=== PATIENT | female | born 1985 | race Caucasian/White ===

== ENCOUNTER 2016-04-25 15:21 | Emergency (ER) | payer MEDICARE, OTHER ==
[2016-04-25] MEDS ORDERED: KETOROLAC TROMETHAMINE 30 MG/ML VIAL IM ONE (15:46)
[2016-04-25] MEDS ORDERED: ACETAMINOPHEN 500 MG TABLET PO ONE (15:46)
--- OUTSIDE RECORDS SUMMARY | 2016-04-25 15:46 | XMS REPORT | Continuity of Care Document ---
:1985 Author Organization [facility] ([facility]) Address [address] [place] [address] Phone [phone] Care Team Providers Name Role Phone Dash Godinez Primary Care Provider [phone] Source Comments This disclosure is being made pursuant to the Care Everywhere program, applicable federal and state laws, and may not contain all informaitonavailable regarding this patient.[facility] ([facility]) Active Allergies and Adverse Reactions Allergen Noted Date Severity Reactions Comments Cefazolin 11/26/2011 Blisters,Angioedema Tongue swelling, blisters in mouth Penicillins 10/26/2011 Urticaria (Hives) Tongue swelling; Blisters in mouth Current Medications Prescription Sig. Disp. Refills Start Date End Date Status phentermine 37.5 mg Take 37.5 mg by Active tablet mouth every morning after breakfast. take one-half tablet (18.75 mg) by oral route once daily before breakfast furosemide 40 mg tablet take 1 tablet (40 Active mg) by oral route 2 times per day ALPRAZolam 0.5 mg tablet take 1 tablet (0.5 Active mg) by oral route 3 times per day Active Problems Problem Noted Date Endometrial hyperplasia 03/25/2015 Dental caries 03/08/2015 Muscle spasm of back 11/08/2011 Disc herniation 11/08/2011 Radiculopathy of lumbar region 11/06/2011 Back pain 10/26/2011 Most Recent Encounters Date Type Specialty Providers Description 04/23/2016 Office Visit Kaushik Conde DDS Chief Comp: Patient Reported Reason For Visit 04/05/2016 Office Visit Kaushik Conde DDS Chief Comp: Patient Reported Reason For Visit 03/21/2016 Office Visit Kaushik Conde DDS Chief Comp: Patient Reported Reason For Visit 03/15/2016 Office Visit Kaushik Conde DDS Chief Comp: Patient Reported Reason For Visit 03/01/2016 Office Visit Kaushik Conde DDS Chief Comp: Patient Reported Reason For Visit Social History Tobacco Use Types Packs/Day Years Used Date Never Smoker Smokeless Tobacco: Never Used Tobacco Cessation:Counseling Given: Yes Comments: Alcohol Use Drinks/Week oz/Week Comments No once a month Last Filed Vital Signs Vital Sign Reading Time Taken Blood Pressure 118/62 04/04/2015 10:50 AM [employer] Pulse 53 03/24/2015 11:25 AM [employer] Temperature 36.9 C (98.4 F) 03/24/2015 11:25 AM [employer] Respiratory Rate 16 03/24/2015 11:25 AM [employer] Height 1.702 m (5' 7") 04/04/2015 10:04 AM [employer] Weight 169.9 kg (374 lb 9 oz) 04/04/2015 10:04 AM [employer] Body Mass Index 58.65 04/04/2015 10:04 AM [employer] Oxygen Saturation 99% 04/04/2015 10:50 AM [employer] Plan of Care Date Type Specialty Providers Description 05/28/2016 Appointment Dentistry Fiona Sears Chief Comp: Patient [address] [place] [address] [phone] (Fax) Health Maintenance Due Date Last Done Comments Hepatitis B Vaccine (1 of 3 - Primary Series) 1985 Tdap Vaccine 07/09/1994 Lipid Disorder Screening 07/09/2001 MMR Vaccine 07/09/2001 Td Vaccine 07/09/2001 Varicella Vaccine (1 of 2 - Adult - No Evidence of 07/09/2001 Immunity) Cervical Cancer Screening 07/09/2013 Influenza Vaccine: Seasonal (#1) 10/03/2015 Results from Last 3 Months Not on file
[2016-04-25] MEDS ORDERED: KETOROLAC TROMETHAMINE 30 MG/ML VIAL ONE (16:05)
[2016-04-25 16:39] VITALS: BP 126/81
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
== END 2016-04-25 17:10 | disposition home or self-care (01) ==
LOC: ER 15:21
DX: S09.90XA Unspecified injury of head, initial encounter (principal); M25.512 Pain in left shoulder; V86.99XA Unspecified occupant of other special all-terrain or other off-road motor vehicle injured in nontraffic accident, initial encounter; F41.8 Other specified anxiety disorders

== ENCOUNTER 2016-05-23 21:03 | Emergency (ER) | payer MEDICARE, OTHER ==
[2016-05-23 21:19] VITALS: BP 151/90
--- OUTSIDE RECORDS SUMMARY | 2016-05-23 21:49 | XMS REPORT | Continuity of Care Document ---
:1985 Author Organization [facility] ([facility]) Address [address] [place] [address] Phone [phone] Care Team Providers Name Role Phone Dash Godinez Primary Care Provider [phone] Source Comments This disclosure is being made pursuant to the Care Everywhere program, applicable federal and state laws, and may not contain all informaitonavailable regarding this patient.[facility] ([facility]) Active Allergies and Adverse Reactions Allergen [...] Recent Encounters Date Type Specialty Providers Description 05/07/2016 Office Visit Kaushik Conde DDS Chief Comp: Patient Reported Reason For Visit 04/23/2016 Office Visit Kaushik Conde DDS Chief [...] Taken Blood Pressure 118/62 04/04/2015 10:50 AM [employer] Pulse 53 03/24/2015 11:25 AM [employer] Temperature 36.9 C (98.4 F) 03/24/2015 11:25 AM [employer] Respiratory Rate 16 03/24/2015 11:25 AM [employer] Height 1.702 m (5' 7") 04/04/2015 10:04 AM [employer] Weight 169.9 kg (374 lb 9 oz) 04/04/2015 10:04 AM [employer] Body Mass Index 58.65 04/04/2015 10:04 AM [employer] Oxygen Saturation 99% 04/04/2015 10:50 AM [employer] Plan of Care Date Type Specialty Providers Description 05/28/2016 Appointment Dentistry Fiona Sears Chief Comp: Patient [address] [place] [address] [phone] (Fax) Health Maintenance Due Date Last Done [...]
[2016-05-23] MEDS ORDERED: TRIAMCINOLONE ACETONIDE 15 APPL TUBE TP ONE ×2 (21:54→21:57)
--- NOTE | 2016-05-23 21:59 | ERNOTE ---
Integumentary HPI - General Presenting Symptoms: rash Time Seen by Provider: 05/23/16 21:43 Source: patient - Immun/Allergies/Home Medications Immunizations: IMMUNIZATION HX Immunizations Up to Date Yes History of Influenza Vaccine Yes Hx Pneumococcal Vaccination No Allergies/Adverse Reactions: Allergies Allergy/AdvReac Type Severity Reaction Status Date / Time Cephalosporins Allergy Verified 05/23/16 21:19 Penicillins Allergy Verified 05/23/16 21:19 Home Medications: HOME MEDICATIONS Alprazolam [Xanax Xr] 0.5 mg PO TID 01/25/15 [Last Taken Unknown] Furosemide [Lasix] 40 mg PO BID 01/25/15 [Last Taken Unknown] - Pain Pain Score: 5 - History of Present Illness Narrative: Pt c/o left post thigh tenderness and itching. Onset earlier today Location: Reports: lower extremity Quality: Reports: itching, painful Severity: moderate Exposure: Reports: no cause identified Modifying Factors - (Improves): Reports: scratching Review of Systems - Review of Systems Constitutional: Present: no symptoms reported EYE: Present: no symptoms reported ENT: Present: no symptoms reported - Patient's Past Medical History Patient History - Medical: Anxiety, Depression, Obesity Patient History - Cardiac/Respiratory: No pertinent hx Patient History - Cancer: No Hx of Cancer Patient History - Surgical Procedures: Back Surgery, Cholecystectomy, Other Patient History - Other: None LMP (Calendar): 02/01/15 - Family History mom Family History - Medical: , Migraines Family History - Cardiac/Respiratory: No pertinent hx dad Family History - Medical: Glaucoma Family History - Cardiac/Respiratory: Other - Social History Living Situations: home Abuse History: No History of abuse Psych History: Hx of Anxiety, Hx of Depression Smoking Status: Never smoker Have you smoked in the past 12 months: No Do you dip or chew tobacco: No Alcohol Use: none Drug Use: benzodiazepine - Immunizations Immunizations Up to Date: Yes Hx Pneumococcal Vaccination: No History of Influenza Vaccine: Yes Physical Exam - Physical Exam General Appearance: Present: wd/wn, alert, no apparent distress Neck: Present: normal inspection, supple Respiratory: Present: no respiratory distress, no accessory muscle use Extremity Exam: Present: normal range of motion Neurological Exam: Present: alert, oriented, normal mood/affect Skin Exam: Present: other - papules and plaques in an irregular pattern in a 5- 6 cm area on the posterior left thigh approx 1/2 way up from knee ED Progress - Vital Signs Vital Signs: Vital Signs 05/23/16 21:15 Temperature 36.8 C Pulse Rate 98 Respiratory 20 Rate Blood Pressure 151/90 O2 Sat by Pulse 96 Oximetry - Progress/Reassessment Chief Complaint: Abscess Progress Note-Subjective: Triamcinolone 0.1% cream applied to area and remainder of the tube sent home with patient 05/24/16 05:31 Departure Clinical Impression: Insect bite Qualifiers: Encounter type: initial encounter Qualified Code(s): W57.XXXA - Bitten or stung by nonvenomous insect and other nonvenomous arthropods, initial encounter - Departure Disposition: Home self-care Condition: Good Instructions: Insect Bite Additional Instructions: See your regular doctor if not improving. Referrals: Dash Godinez DO [Primary Care Provider] -
== END 2016-05-23 22:03 | disposition home or self-care (01) ==
LOC: ER 21:03
DX: L29.9 Pruritus, unspecified (principal); W57.XXXA Bitten or stung by nonvenomous insect and other nonvenomous arthropods, initial encounter; F41.8 Other specified anxiety disorders

== ENCOUNTER 2016-05-27 20:31 | Emergency (ER) | payer MEDICARE, OTHER ==
[2016-05-27 20:53] VITALS: BP 143/87
--- OUTSIDE RECORDS SUMMARY | 2016-05-27 21:42 | XMS REPORT | Continuity of Care Document ---
:1985 Author Organization [facility] ([facility]) Address [address] [place] [address] Phone [phone] Care Team Providers Name Role Phone Dash Godinez Primary Care Provider [phone] Source Comments This disclosure is being made pursuant to the Care Everywhere program, applicable federal and state laws, and may not contain all informaitonavailable regarding this patient.[facility] ([facility]) Active Allergies and Adverse Reactions Allergen [...] Taken Blood Pressure 118/62 04/04/2015 10:50 AM [employer] Pulse 53 03/24/2015 11:25 AM [employer] Temperature 36.9 C (98.4 F) 03/24/2015 11:25 AM [employer] Respiratory Rate 16 03/24/2015 11:25 AM [employer] Height 1.702 m (5' 7") 04/04/2015 10:04 AM [employer] Weight 169.9 kg (374 lb 9 oz) 04/04/2015 10:04 AM [employer] Body Mass Index 58.65 04/04/2015 10:04 AM [employer] Oxygen Saturation 99% 04/04/2015 10:50 AM [employer] Plan of Care Date Type Specialty Providers Description 05/28/2016 Appointment Dentistry Fiona Sears Chief Comp: Patient [address] Rep[place] [address] [phone] (Fax) Health Maintenance Due Date Last Done [...]
--- NOTE | 2016-05-27 21:45 | ERNOTE ---
Lower Extremity HPI - Narrative Date of Service: 05/27/16 - General Lower Extremities Pain: thigh: left - abscess Source: patient Exam Limitations: no limitations - Immun/Allergies/Home Medications Immunizations: IMMUNIZATION HX Immunizations Up to Date Yes History of Influenza Vaccine Yes Hx Pneumococcal Vaccination No Allergies/Adverse Reactions: Allergies Allergy/AdvReac Type Severity Reaction Status Date / Time Cephalosporins Allergy Verified 05/23/16 21:19 Penicillins Allergy Verified 05/23/16 21:19 Home Medications: HOME MEDICATIONS Alprazolam [Xanax Xr] 0.5 mg PO TID 01/25/15 [Last Taken Unknown] Furosemide [Lasix] 40 mg PO BID 01/25/15 [Last Taken Unknown] Sulfamethoxazole/Trimethoprim [Bactrim Ds] 2 tab PO BID #20 tab 05/27/16 [Last Taken Unknown] - History of Present Illness Narrative: 30-year-old female presenting to the emergency room complaining of increased pain to her left medial thigh abscess. States that she saw an emergency room physician on Saturday who did I and D and culture to area with packing. Pain has become and unbearable. patient is unable to lay flat on that side. Date (Duration): 05/27/16 Occurred: last week Location of Incident: home Method of Injury: Reports: unknown Modifying Factors - (Worsens): Reports: movement Prior Treament: Reports: treated by physician, currently on antibiotics Review of Systems - Review of Systems Constitutional: Present: no symptoms reported EYE: Present: no symptoms reported ENT: Present: no symptoms reported Respiratory: Present: no symptoms reported Cardiology: Present: no symptoms reported Gastrointestinal/Abdominal: Present: no symptoms reported Genitourinary: Present: no symptoms reported Musculoskeletal: Present: no symptoms reported Skin: Present: See HPI, lesions, change in color Neurological: Present: no symptoms reported Endocrine: Present: no symptoms reported Hematologic/Lymphatic: Present: no symptoms reported Psych: Present: no symptoms reported All Other Systems: All systems neg except as marked - Patient's Past Medical History Patient History - Medical: Anxiety, Depression, Obesity Patient History - Cardiac/Respiratory: No pertinent hx Patient History - Cancer: No Hx of Cancer Patient History - Surgical Procedures: Back Surgery, Cholecystectomy, Other Patient History - Other: None LMP (females 10-50): 3 weeks LMP (Calendar): 02/01/15 - Family History mom Family History - Medical: , Migraines Family History - Cardiac/Respiratory: No pertinent hx dad Family History - Medical: Glaucoma Family History - Cardiac/Respiratory: Other - Social History Living Situations: other Abuse History: No History of abuse Psych History: Hx of Anxiety, Hx of Depression Smoking Status: Never smoker Alcohol Use: none Drug Use: benzodiazepine - Immunizations Immunizations Up to Date: Yes Hx Pneumococcal Vaccination: No History of Influenza Vaccine: Yes Physical Exam - Physical Exam Narrative: 30-year-old female presenting to the emergency room with increased pain of a right thigh abscess. States that she has increased pain redness and warmth. She has a very large indurated area with purulent and serosanguineous drainage. Erythematous area is warm and firm and painful General Appearance: Present: wd/wn Eye Exam: Normal inspection: bilateral Ears, Nose, Throat: Present: normal ENT inspection Neck: Present: normal inspection Respiratory: Present: no respiratory distress Cardiovascular/Chest: Present: regular rate, rhythm Peripheral Pulses: N=norm/S=strong/W=weak/B=bound/A=absent: Radial (R): Normal, Radial (L): Normal, Dorsalis-pedis (R): Normal, Dorsalis-pedis (L): Normal Gastrointestinal/Abdominal: Present: normal bowel sounds Back Exam: Present: normal inspection Extremity Exam: Present: normal except -, other - skin abscess. see skin assessment Neurological Exam: Present: alert, oriented, normal mood/affect Skin Exam: Present: other - medial thigh abscess is warm, red, painful, swollen and indurated with moderate amount of purulent drainage. rest of her skin is unremarkable Lymphatic Exam: Present: no adenopathy ED Progress - Vital Signs Patient's Vital Signs:: I have reviewed the patient's vital signs. Vital Signs: Vital Signs 05/27/16 20:47 Temperature 36.6 C Pulse Rate 76 Respiratory 16 Rate Blood Pressure 143/87 O2 Sat by Pulse 97 Oximetry - Progress/Reassessment Chief Complaint: Lower Extremity Pain/ Injury Progress:: Improved Departure Clinical Impression: Cellulitis and abscess of buttock - Departure Disposition: Home Follow Up Needed Condition: Stable Instructions: Abscess, [id number] Additional Instructions: Continue previous home medications. Stop clarithromycin antibiotic. you were given her first dose of antibiotic in the emergency room. Start your new antibiotics tomorrow morning. At least 3 times a day do warm soaks to abscess area. Follow-up with primary care physician on Saturday regarding possible need for surgical consult. Return to the emergency room if symptoms persist, if you developed a fever, chills or unable to control her pain. Referrals: Dash Godinez DO [Primary Care Provider] - Prescriptions: Sulfamethoxazole/Trimethoprim [Bactrim Ds] 2 tab PO BID #20 tab
[2016-05-27] MEDS ORDERED: SULFAMETHOXAZOLE/TRIMETHOPRIM 1 TAB TABLET ONE (21:49)
[2016-05-28] MEDS ORDERED: SULFAMETHOXAZOLE/TRIMETHOPRIM 1 TAB TABLET PO SCH (09:00)
== END 2016-05-27 22:27 | disposition home or self-care (01) ==
LOC: ER 20:31
DX: L02.31 Cutaneous abscess of buttock (principal); L03.317 Cellulitis of buttock

== ENCOUNTER 2016-05-29 13:34 | Emergency (ER) | payer MEDICARE, OTHER ==
[2016-05-29 14:00] LABS: Hematocrit 41.1 % (37.0-47.0); Hemoglobin 13.2 gm/dL (12.5-16.0); Mean Cell Volume 81.4 fl (78-100); Mean Corpuscular Hemoglobin 26.1 pg (27-31); Mean Corpuscular Hgb Conc 32.1 g/dl (32-36); Mean Platelet Volume 8.5 fl (6.0-9.5); Neutrophil # 5.4 K/mm3 (1.3-6.0); Neutrophil % 79.9 % (42-75.0); Platelet Count 363 K/mm3 (150-450); Red Blood Count 5.05 M/mm3 (4.2-5.4); Red Cell Distribution Width 14.7 % (11.5-14.0); White Blood Count 6.8 K/mm3 (4.0-10.5)
[2016-05-29 14:10] LABS: INR 0.96 INR (0.90-1.10); Partial Thrombolplastin Time 29.7 Seconds (24-32)
--- NOTE | 2016-05-29 14:14 | ERNOTE ---
Chest Pain/Cardiac HPI Date of Service: 05/29/16 Chief Complaint: Chest Pain Time Seen by Provider: 05/29/16 14:07 Source: patient Exam Limitations: no limitations Immunizations: IMMUNIZATION HX Immunizations Up to Date Yes History of Influenza Vaccine No Hx Pneumococcal Vaccination No Allergies/Adverse Reactions: Allergies Cephalosporins Allergy (Verified 05/29/16 13:46) Penicillins Allergy (Verified 05/29/16 13:46) Home Medications: HOME MEDICATIONS Alprazolam [Xanax Xr] 0.5 mg PO TID 01/25/15 [Last Taken Unknown] Furosemide [Lasix] 40 mg PO BID 01/25/15 [Last Taken Unknown] Sulfamethoxazole/Trimethoprim [Bactrim Ds] 2 tab PO BID #20 tab 05/27/16 [Last Taken Unknown] Clindamycin HCl [Cleocin HCl] 300 mg PO TID #30 capsule 05/29/16 [Last Taken Unknown] Ibuprofen [Motrin] 800 mg PO .Q8H PRN #30 tablet 05/29/16 [Last Taken Unknown] Pain Score #1 Pain Score: 5 Narrative: 30yo, F, presents to ER for chest pain, which started to sternal region. Pain initially started as what she thought was indigestion, but has worsened as the day went on. Pain now radiates down her L. arm. Pain does increase with movement of L. arm. She is currently on Bactrim for tx of "MRSA" to her L. posterior thigh. Date (Duration): 05/29/16 Time (Timing): 08:00 Timing: intermittent Location: central Chest Pain Radiation: arms - L. Activities at Onset: rest Modifying Factors - Improves: Present: nothing Modifying Factors - Worsens: Present: nothing Aspirin Treatment Today: no aspirin today Associated Symptoms: Present: shortness of breath, heartburn, back pain - intermittent. Absent: headache, dizziness, syncope, diaphoresis, fever/chills, palpitations, nausea, vomiting, weakness Prior Chest Pain/Cardiac Workup: Reports: no prior cardiac workup. Denies: heart attack, echocardiogram, stress test, pulmonary embolism Prior Treatment: Reports: currently on antibiotics - for MRSA of L. leg Review of Systems - Review of Systems Constitutional: Absent: fever, chills, diaphoresis, fatigue Respiratory: Present: shortness of breath, wheezing - "little bit". Absent: cough Cardiology: Present: chest pain, edema - chronic, no acute changes. Absent: palpitations, syncope Gastrointestinal/Abdominal: Present: nausea. Absent: vomiting, diarrhea, constipation Genitourinary: Present: decreased urinary output. Absent: frequency, pain, dysuria, hematuria Skin: Absent: rash - Patient's Past Medical History Patient History - Medical: Anxiety, Depression, Obesity Patient History - Cardiac/Respiratory: No pertinent hx Patient History - Cancer: No Hx of Cancer Patient History - Surgical Procedures: Back Surgery, Cholecystectomy, Other Patient History - Other: None LMP (Calendar): 05/02/16 - Family History mom Family History - Medical: , Migraines Family History - Cardiac/Respiratory: No pertinent hx dad Family History - Medical: Glaucoma Family History - Cardiac/Respiratory: Other - Social History Living Situations: home Abuse History: No History of abuse Psych History: Hx of Anxiety, Hx of Depression, Current tx/ever been on anti- depressants or anti-anxiety meds Smoking Status: Never smoker Alcohol Use: none Drug Use: benzodiazepine - Immunizations Immunizations Up to Date: Yes Hx Pneumococcal Vaccination: No History of Influenza Vaccine: No Physical Exam - Physical Exam General Appearance: Present: wd/wn, alert, no apparent distress Neck: Present: normal inspection, nontender Respiratory: Present: no respiratory distress, normal breath sounds, no accessory muscle use, chest tenderness - tenderness along L. chest wall and L. costachondral junction, L. chest wall pain increases with L. arm ROM Cardiovascular/Chest: Present: regular rate, rhythm, no murmur Extremity Exam: Present: normal inspection, non-tender, normal range of motion, other - L. chest discomfort increases with LUE movement Neurological Exam: Present: alert, oriented, normal mood/affect Skin Exam: Present: normal color, warm/dry, other - 12cm x 8cm of pale erythema L. posterior thigh, with central 1cm x1cm opening, wound bed with sloughy appearance, small amt of purulent dc, no odor, mild induration to periwound area , no fluctuance ED Progress - Results and Orders Patient's Lab Results:: I have reviewed the patient's lab results. - Vital Signs Patient's Vital Signs:: I have reviewed the patient's vital signs. Vital Signs: Vital Signs 05/29/16 13:39 Temperature 36.6 C Pulse Rate 88 Respiratory 16 Rate Blood Pressure 136/91 O2 Sat by Pulse 100 Oximetry - EKG EKG: NSR - X-Ray X-Ray #1 X-Ray: chest Interpretation: Reviewed by me X-ray Comments: [facility] PATIENT RADIOLOGY STUDY REPORT Patient Patient Name:AGUSTIN DUPONT Date: 1985 Sex: F Order Number: [id number] Unique Exam ID: [id number] Exam Requested: CXRPALAT - Chest PA Lateral * Date Scheduled: Study Priority: Requesting Service: Requesting Physician: Pb Paiz Reason for Exam: Radiological Report : Exam Date: 05/29/2016 13:46 Ordering Physician: Pb Piaz HISTORY: Chest pain radiating into the left arm. TECHNIQUE: PA and lateral views of the chest were obtained. 2 images. COMPARISONS: 04/25/2016 FINDINGS: Chest PA Lateral * Normal lung volumes. No consolidation or mass. No pneumothorax or pleural fluid collections. Cardiac and mediastinal silhouettes are normal. Trachea is in normal position. Bones are normal. IMPRESSION: 1. No focal acute cardiopulmonary finding. Electronically signed by Aimee Beltran M.D.. Approved by: Approval Date: 05-29-2016 Approval Time: 02:37 PM THIS REPORT WAS RECEIVED FROM THE [employer] SYSTEM - Progress/Reassessment Chief Complaint: Chest Pain Departure - Departure Clinical Impression: Costochondritis, Cellulitis of left leg Disposition: Home self-care Condition: Good Instructions: Costochondritis, [id number], Cellulitis, Adult, [id number] Additional Instructions: Continue Bactrim as previously ordered, start Clindamycin today Monitor leg for improving or worsening of symptoms, if symptoms worsen or you develop fever return to ER Heat or biofreeze to chest wall may help with pain Schedule recheck of your leg with your primary care doctor later this week, or early next week Referrals: Dash Godinez DO [Primary Care Provider] - Prescriptions: Clindamycin HCl [Cleocin HCl] 300 mg PO TID #30 capsule Ibuprofen [Motrin] 800 mg PO .Q8H PRN #30 tablet PRN Reason: Pain
[2016-05-29 14:20] LABS: Troponin I Less than 0.017 ng/ml (0.00-0.10)
[2016-05-29] MEDS ORDERED: KETOROLAC TROMETHAMINE 60 MG/2 ML VIAL IM ONE ×2 (14:24→14:45)
[2016-05-29 14:25] LABS: ALT 32 U/L (19-67); AST 18 U/L (0-48); Alkaline Phosphatase * 71 U/L (50-170); Anion Gap 12.3 mmol/L (6.8-13.8); BUN/Creatinine Ratio 11.5 (9.0-21.6); Bilirubin, Total 0.9 mg/dL (0.0-1.1); Blood Urea Nitrogen 12 mg/dL (3-23); Ca. Corrected For Albumin 8.4 mg/dL (8.4-10.2); Calcium * 7.9 mg/dL (7.9-10.9); Carbon Dioxide 25.6 mmol/L (24-32.6); Chloride 105 mmol/L (97-106); Glucose * 91 mg/dL (70-110); Potassium 3.9 mmol/L (3.4-4.6); Sodium 139 mmol/L (132-142); Total Protein 7.6 gm/dL (6.2-8.2)
--- OUTSIDE RECORDS SUMMARY | 2016-05-29 14:50 | XMS REPORT | Continuity of Care Document ---
:1985 Author Organization [facility] ([facility]) Address [address] [place] [address] Phone [phone] Care Team Providers Name Role Phone Dash Godinez Primary Care Provider [phone] Source Comments This disclosure is being made pursuant to the Care Everywhere program, applicable federal and state laws, and may not contain all informaitonavailable regarding this patient.[facility] ([facility]) Active Allergies and Adverse Reactions Allergen [...] Recent Encounters Date Type Specialty Providers Description 05/28/2016 Office Visit Dentistry Fiona Sears Chief Comp: Patient Reported Reason For Visit 05/07/2016 Office Visit Kaushik Conde DDS Chief [...] Taken Blood Pressure 118/62 04/04/2015 10:50 AM CONTRACTS SPECIALIST Pulse 53 03/24/2015 11:25 AM CONTRACTS SPECIALIST Temperature 36.9 C (98.4 F) 03/24/2015 11:25 AM CONTRACTS SPECIALIST Respiratory Rate 16 03/24/2015 11:25 AM CONTRACTS SPECIALIST Height 1.702 m (5' 7") 04/04/2015 10:04 AM CONTRACTS SPECIALIST Weight 169.9 kg (374 lb 9 oz) 04/04/2015 10:04 AM CONTRACTS SPECIALIST Body Mass Index 58.65 04/04/2015 10:04 AM CONTRACTS SPECIALIST Oxygen Saturation 99% 04/04/2015 10:50 AM CONTRACTS SPECIALIST Plan of Care Health Maintenance Due Date Last Done Comments [...]
[2016-05-29 15:32] VITALS: BP 123/74
== END 2016-05-29 15:45 | disposition home or self-care (01) ==
LOC: ER 13:34
DX: M94.0 Chondrocostal junction syndrome [Tietze] (principal); L03.116 Cellulitis of left lower limb; F41.8 Other specified anxiety disorders

== ENCOUNTER 2016-05-30 13:19 | Emergency (ER) | payer MEDICARE, OTHER ==
[2016-05-30 13:49] LABS: Hematocrit 41.6 % (37.0-47.0); Hemoglobin 13.4 gm/dL (12.5-16.0); Mean Cell Volume 80.6 fl (78-100); Mean Corpuscular Hgb Conc 32.2 g/dl (32-36); Mean Platelet Volume 8.5 fl (6.0-9.5); Neutrophil # 4.2 K/mm3 (1.3-6.0); Neutrophil % 65.9 % (42-75.0); Platelet Count 370 K/mm3 (150-450); Red Blood Count 5.16 M/mm3 (4.2-5.4); Red Cell Distribution Width 14.6 % (11.5-14.0); White Blood Count 6.3 K/mm3 (4.0-10.5)
[2016-05-30 14:00] LABS: INR 0.98 INR (0.90-1.10); Prothrombin Time (Patient) 10.2 Seconds (9.4-11.4)
[2016-05-30 14:01] LABS: Partial Thrombolplastin Time 30.6 Seconds (24-32)
[2016-05-30 14:02] LABS: Anion Gap 17.3 mmol/L (6.8-13.8); BUN/Creatinine Ratio 11.3 (9.0-21.6); Bilirubin, Total 0.5 mg/dL (0.0-1.1); Ca. Corrected For Albumin 8.6 mg/dL (8.4-10.2); Calcium * 8.1 mg/dL (7.9-10.9); Carbon Dioxide 20.7 mmol/L (24-32.6); Total Protein 7.7 gm/dL (6.2-8.2)
--- OUTSIDE RECORDS SUMMARY | 2016-05-30 15:18 | XMS REPORT | Continuity of Care Document ---
:1985 Author Organization [facility] ([facility]) Address [address] [place] [address] Phone [phone] Care Team Providers Name Role Phone Dash Godinez Primary Care Provider [phone] Source Comments This disclosure is being made pursuant to the Care Everywhere program, applicable federal and state laws, and may not contain all informaitonavailable regarding this patient.[facility] ([facility]) Active Allergies and Adverse Reactions Allergen [...] Taken Blood Pressure 118/62 04/04/2015 10:50 AM POWER LINEMAN Pulse 53 03/24/2015 11:25 AM POWER LINEMAN Temperature 36.9 C (98.4 F) 03/24/2015 11:25 AM POWER LINEMAN Respiratory Rate 16 03/24/2015 11:25 AM POWER LINEMAN Height 1.702 m (5' 7") 04/04/2015 10:04 AM POWER LINEMAN Weight 169.9 kg (374 lb 9 oz) 04/04/2015 10:04 AM POWER LINEMAN Body Mass Index 58.65 04/04/2015 10:04 AM POWER LINEMAN Oxygen Saturation 99% 04/04/2015 10:50 AM POWER LINEMAN Plan of Care Health Maintenance Due Date [...]
--- NOTE | 2016-05-30 15:55 | ERNOTE ---
ER Female HPI Date of Service: 05/30/16 Stated Complaint: RECTAL BLEEDING Time Seen by Provider: 05/30/16 15:10 Source: patient Exam Limitations: no limitations Immunizations: IMMUNIZATION HX Immunizations Up to Date Yes History of Influenza Vaccine No Hx Pneumococcal Vaccination No Allergies/Adverse Reactions: Allergies Cephalosporins Allergy (Verified 05/30/16 13:28) Penicillins Allergy (Verified 05/30/16 13:28) Home Medications: HOME MEDICATIONS Alprazolam [Xanax Xr] 0.5 mg PO TID 01/25/15 [Last Taken Unknown] Furosemide [Lasix] 40 mg PO BID 01/25/15 [Last Taken Unknown] Sulfamethoxazole/Trimethoprim [Bactrim Ds] 2 tab PO BID #20 tab 05/27/16 [Last Taken Unknown] Clindamycin HCl [Cleocin HCl] 300 mg PO TID #30 capsule 05/29/16 [Last Taken Unknown] Ibuprofen [Motrin] 800 mg PO .Q8H PRN #30 tablet 05/29/16 [Last Taken Unknown] Hydrocortisone [Anusol-Hc] 1 appl RC BID #1 cream..g. 05/30/16 [Last Taken Unknown] - History of Present Illness Narrative: Pt. comes in with c/o rectal bleeding that she noted in this morning upon awakening. Pt. denies any constipation, NVD, fever, SOB, CP, blood with stool or just stool. Pt. has had recent infection on L post thigh that is treated with abx. Review of Systems - Review of Systems Constitutional: Present: recent illness. Absent: fever, chills, weakness, fatigue, malaise, weight loss EYE: Present: no symptoms reported ENT: Present: no symptoms reported Respiratory: Present: no symptoms reported. Absent: shortness of breath, cough , wheezing Cardiology: Present: no symptoms reported Gastrointestinal/Abdominal: Present: other - rectal bleeding. Absent: nausea, vomiting, diarrhea, constipation, abdominal pain Genitourinary: Present: no symptoms reported Musculoskeletal: Present: no symptoms reported Skin: Present: no symptoms reported. Absent: rash, change in color Neurological: Present: no symptoms reported. Absent: headache, dizziness/light- headedness, numbness, tingling All Other Systems: All systems neg except as marked - Patient's Past Medical History Patient History - Medical: Anxiety, Depression, Obesity Patient History - Cardiac/Respiratory: No pertinent hx Patient History - Cancer: No Hx of Cancer Patient History - Surgical Procedures: Back Surgery, Cholecystectomy, Other Patient History - Other: None LMP (females 10-50): 05/06/16 LMP (Calendar): 05/02/16 - Family History mom Family History - Medical: , Migraines Family History - Cardiac/Respiratory: No pertinent hx dad Family History - Medical: Glaucoma Family History - Cardiac/Respiratory: Other - Social History Living Situations: home Abuse History: No History of abuse Psych History: Hx of Anxiety, Hx of Depression, Current tx/ever been on anti- depressants or anti-anxiety meds Smoking Status: Never smoker Alcohol Use: none Drug Use: benzodiazepine - Immunizations Immunizations Up to Date: Yes Hx Pneumococcal Vaccination: No History of Influenza Vaccine: No Physical Exam - Physical Exam General Appearance: Present: wd/wn, alert, no apparent distress Eye Exam: Normal inspection: bilateral, PERRL: bilateral, EOMI: bilateral Ears, Nose, Throat: Present: normal ENT inspection, normal pharynx Neck: Present: normal inspection, nontender. Absent: lymphadenopathy (R), lymphadenopathy (L) Respiratory: Present: no respiratory distress, normal breath sounds, no accessory muscle use, chest nontender, lungs clear Cardiovascular/Chest: Present: regular rate, rhythm, no murmur, normal peripheral pulses Gastrointestinal/Abdominal: Present: normal bowel sounds, nontender, nondistended, soft, no organomegaly Rectal Exam: Present: normal rectal tone, tenderness, hemorrhoids - external not thrombosed residual tags, other - blood from rectum no stool. Absent: decreased tone, fecal impaction Back Exam: Present: normal inspection, normal range of motion, no CVA tenderness , no vertebral tenderness Extremity Exam: Present: normal inspection Neurological Exam: Present: alert, oriented, normal mood/affect, no motor/ sensory deficits Skin Exam: Present: normal color, warm/dry. Absent: pallor, skin rash ED Progress - Date and Time Seen: Date and Time: 05/30/16 16:[address] Everett as pt. is not bleeding enough to be concerning for acute decline but more bleeding than may resolve without intervention or complication so he will see pt. tomorrow as out patient. - Results and Orders Patient's Lab Results:: I have reviewed the patient's lab results. - Vital Signs Patient's Vital Signs:: I have reviewed the patient's vital signs. Vital Signs: Vital Signs 05/30/16 13:25 Temperature 36.1 C L Pulse Rate 85 Respiratory 16 Rate Blood Pressure 123/74 O2 Sat by Pulse 96 Oximetry - Progress/Reassessment Chief Complaint: Genitourinary Problem Departure Clinical Impression: Hemorrhoid Qualifiers: Hemorrhoid type: unspecified Qualified Code(s): K64.9 - Unspecified hemorrhoids - Departure Disposition: Home self-care Condition: Good Instructions: Hemorrhoids, [id number] Additional Instructions: Please follow up with Dr Everett as scheduled. Use cream as directed. Referrals: Dash Godinez DO [Primary Care Provider] - Prescriptions: Hydrocortisone [Anusol-Hc] 1 appl RC BID #1 cream..g.
[2016-05-30 16:01] VITALS: BP 152/96
== END 2016-05-30 16:03 | disposition home or self-care (01) ==
LOC: ER 13:19
DX: K64.9 Unspecified hemorrhoids (principal)

== ENCOUNTER 2016-06-17 20:15 | Emergency (ER) | payer MEDICARE, OTHER ==
[2016-06-17 20:26] VITALS: BP 161/78
[2016-06-17] MEDS ORDERED: LORATADINE 10 MG TABLET PO ONE (20:50)
[2016-06-17] MEDS ORDERED: CODEINE PHOSPHATE/GUAIFENESIN 5 ML UDC PO ONE (20:50)
--- OUTSIDE RECORDS SUMMARY | 2016-06-17 20:50 | XMS REPORT | Continuity of Care Document ---
:1985 Author Organization [facility] ([facility]) Address [address] [place] [address] Phone [phone] Care Team Providers Name Role Phone Dash Godinez Primary Care Provider [phone] Source Comments This disclosure is being made pursuant to the Care Everywhere program, applicable federal and state laws, and may not contain all informaitonavailable regarding this patient.[facility] ([facility]) Active Allergies and Adverse Reactions Allergen Noted Date Severity Reactions Comments Cefazolin 11/26/2011 Blisters,Angioedema Tongue swelling, blisters in mouth Penicillins 10/26/2011 Urticaria (Hives) Tongue swelling; Blisters in mouth Current Medications Prescription Sig. Disp. Refills Start Date End Date Status furosemide 40 mg take 1 tablet Active tablet (40 mg) by oral route 2 times per day ALPRAZolam 0.5 mg take 1 tablet Active tablet (0.5 mg) by oral route 3 times per day clindamycin 300 mg Take 300 mg by Active capsule mouth 4 times daily. trimethoprim-sulfame Take 1 tablet by Active thoxazole 160-800 mg mouth 2 times per tablet daily. phentermine 37.5 mg Take 37.5 mg by 05/31/2016 Discontinued tablet mouth every morning after breakfast. take one-half tablet (18.75 mg) by oral route once daily before breakfast Active Problems Problem Noted Date Endometrial hyperplasia 03/25/2015 Dental caries 03/08/2015 Muscle spasm of back 11/08/2011 Disc herniation 11/08/2011 Radiculopathy of lumbar region 11/06/2011 Back pain 10/26/2011 Most Recent Encounters Date Type Specialty Providers Description 05/31/2016 Office Visit Dentistry Kaushik Robin DDS Chief Comp: Patient Reported Reason For Visit 05/28/2016 Office Visit Dentistry Fiona Sears Chief [...] Taken Blood Pressure 118/62 04/04/2015 10:50 AM PRICER Pulse 53 03/24/2015 11:25 AM PRICER Temperature 36.9 C (98.4 F) 03/24/2015 11:25 AM PRICER Respiratory Rate 16 03/24/2015 11:25 AM PRICER Height 1.702 m (5' 7") 04/04/2015 10:04 AM PRICER Weight 169.9 kg (374 lb 9 oz) 04/04/2015 10:04 AM PRICER Body Mass Index 58.65 04/04/2015 10:04 AM PRICER Oxygen Saturation 99% 04/04/2015 10:50 AM PRICER Plan of Care Date Type Specialty Providers Description 12/06/2016 Appointment Dentistry Chief Comp: Patient Reported Reason For Visit Health Maintenance Due Date Last Done Comments Hepatitis B Vaccine (1 of 3 - Primary Series) 1985 Tdap Vaccine 07/09/1994 Lipid Disorder Screening 07/09/2001 MMR Vaccine 07/09/2001 Td Vaccine 07/09/2001 Varicella Vaccine (1 of 2 - Adult - No Evidence of 07/09/2001 Immunity) Cervical Cancer Screening 07/09/2013 Influenza Vaccine: Seasonal Completed Results from Last 3 Months Not on file
[2016-06-17] MEDS ORDERED: LORATADINE 10 MG TABLET ONE (21:03)
--- NOTE | 2016-06-17 21:05 | ERNOTE ---
Date of Service: 06/17/16 Time Seen by Provider: 06/17/16 20:32 Stated Complaint: CONGESTION, VOMITTING Presenting Symptoms:: cough Source: patient, RN notes reviewed Exam Limitations: no limitations Immunizations: IMMUNIZATION HX Immunizations Up to Date Yes History of Influenza Vaccine No Hx Pneumococcal Vaccination No Allergies/Adverse Reactions: Allergies Cephalosporins Allergy (Verified 06/17/16 20:26) Penicillins Allergy (Verified 06/17/16 20:26) Home Medications: HOME MEDICATIONS Alprazolam [Xanax Xr] 0.5 mg PO TID 01/25/15 [Last Taken Unknown] Furosemide [Lasix] 40 mg PO BID 01/25/15 [Last Taken Unknown] Cetirizine HCl [Allergy Relief] 10 mg PO DAILY #30 tablet 06/17/16 [Last Taken Unknown] - History of Present Ilness Narrative: 30 y/o female ambulatory to the ED for a cough and nasal congestion that began 4 days ago and have been gradually worsening. She vomited this evening and is concerned that she will vomit in her sleep. She took ibuprofen for a headache earlier today, otherwise has not taken anything for her symptoms. She took Benadryl a couple of days ago thinking the symptoms may have been due to allergies. This did not help and made her tired. Frequency/Possible Cause: Reports: unknown cause Associated Symptoms: Reports: cough, nasal congestion, nasal drainage, headache. Denies: chest pain/soreness, shortness of breath, wheezing, facial pain, dizziness, lightheadedness, earache, sore throat, muscle aches, fever/ chills Prior Treatment: Denies: recently seen, currently on antibiotics Review of Systems - Review of Systems Constitutional: Present: See HPI EYE: Absent: eye discharge, tearing ENT: Present: See HPI Respiratory: Present: See HPI Cardiology: Present: no symptoms reported Gastrointestinal/Abdominal: Present: vomiting. Absent: nausea, diarrhea, abdominal pain Genitourinary: Present: no symptoms reported Musculoskeletal: Present: no symptoms reported Skin: Absent: rash, lesions Neurological: Present: headache. Absent: dizziness/light-headedness Endocrine: Present: no symptoms reported Hematologic/Lymphatic: Present: no symptoms reported Psych: Present: no symptoms reported - Patient's Past Medical History Patient History - Medical: Anxiety, Depression, Obesity Patient History - Cardiac/Respiratory: No pertinent hx Patient History - Cancer: No Hx of Cancer Patient History - Surgical Procedures: Back Surgery, Cholecystectomy, Other Patient History - Other: None LMP (Calendar): 05/02/16 - Family History mom Family History - Medical: , Migraines Family History - Cardiac/Respiratory: No pertinent hx dad Family History - Medical: Glaucoma Family History - Cardiac/Respiratory: Other - Social History Living Situations: home Abuse History: No History of abuse Psych History: Hx of Anxiety, Hx of Depression, Current tx/ever been on anti- depressants or anti-anxiety meds Smoking Status: Never smoker Alcohol Use: none Drug Use: benzodiazepine - Immunizations Immunizations Up to Date: Yes Hx Pneumococcal Vaccination: No History of Influenza Vaccine: No Physical Exam - Physical Exam General Appearance: Present: alert, no apparent distress, obese Eye Exam: Normal inspection: bilateral Ears, Nose, Throat: Present: nasal congestion - pale boggy turbinates, worse on left. Absent: sinus pain/drainage, pharyngeal erythema, pharyngeal swelling Neck: Present: normal inspection, nontender, supple Respiratory: Present: no respiratory distress, normal breath sounds, no accessory muscle use, lungs clear, other - no coughing during exam Cardiovascular/Chest: Present: regular rate, rhythm, no murmur Neurological Exam: Present: alert, oriented, normal mood/affect, no motor/ sensory deficits Skin Exam: Present: normal color, warm/dry ED Progress - Vital Signs Patient's Vital Signs:: I have reviewed the patient's vital signs. Vital Signs: Vital Signs 06/17/16 20:24 Temperature 36.7 C Pulse Rate 78 Respiratory 18 Rate Blood Pressure 161/78 O2 Sat by Pulse 98 Oximetry - Progress/Reassessment Chief Complaint: Cough Progress:: Unchanged Departure - Departure Clinical Impression: Allergic rhinitis Qualifiers: Allergic rhinitis trigger: unspecified Allergic rhinitis seasonality: seasonal Qualified Code(s): J30.2 - Other seasonal allergic rhinitis Disposition: Home Follow Up Needed Condition: Good Instructions: Allergic Rhinitis Additional Instructions: Take cetirizine at bedtime for sinus drainage/allergy symptoms Use nasal saline for congestion Robitussin DM (generic brand is ok) for cough Follow up with your doctor if your symptoms have not improved later in the week Referrals: Dash Godinez DO [Primary Care Provider] - Prescriptions: Cetirizine HCl [Allergy Relief] 10 mg PO DAILY #30 tablet
== END 2016-06-17 21:11 | disposition home or self-care (01) ==
LOC: ER 20:15
DX: J30.2 Other seasonal allergic rhinitis (principal); F41.9 Anxiety disorder, unspecified

== ENCOUNTER 2016-10-08 18:48 | Emergency (ER) | payer MEDICARE, OTHER ==
[2016-10-08 18:57] VITALS: BP 119/82
[2016-10-08] MEDS ORDERED: ONDANSETRON 4 MG TAB.RAPDIS ONE (19:07)
[2016-10-08] MEDS ORDERED: ONDANSETRON 4 MG TAB.RAPDIS PO ONE (19:09)
--- NOTE | 2016-10-08 19:11 | ERNOTE ---
Headache ER HPI - General Presenting Symptoms: headache Time Seen by Provider: 10/08/16 19:02 Source: patient Exam Limitations: no limitations - Immun/Allergies/Home Medications Immunizations: IMMUNIZATION HX Immunizations Up to Date Yes History of Influenza Vaccine Yes Hx Pneumococcal Vaccination No Allergies/Adverse Reactions: Allergies Cephalosporins Allergy (Verified 06/17/16 20:26) Penicillins Allergy (Verified 06/17/16 20:26) Home Medications: HOME MEDICATIONS Alprazolam [Xanax Xr] 0.5 mg PO TID 01/25/15 [Last Taken Unknown] Furosemide [Lasix] 40 mg PO BID 01/25/15 [Last Taken Unknown] HYDROcodone/ACETAMINOPHEN [[facility] 5-325] 1 - 2 tab PO Q6H PRN #6 tab 10/08/16 [ Last Taken Unknown] Ibuprofen [Motrin] 800 mg PO TID PRN 10/08/16 [Last Taken Unknown] - History of Present Illness Narrative: Here for a migraine headache AND pt is 7 months . NOT worse headache, pt quantifies it as "a typical migraine" Review of Systems - Review of Systems Constitutional: Present: no symptoms reported EYE: Present: other - photophobia Respiratory: Present: no symptoms reported Cardiology: Present: no symptoms reported Gastrointestinal/Abdominal: Present: no symptoms reported Neurological: Present: headache - Patient's Past Medical History Patient History - Medical: Anxiety, Depression, Migraines, Obesity Patient History - Cardiac/Respiratory: No pertinent hx Patient History - Cancer: No Hx of Cancer Patient History - Surgical Procedures: Back Surgery, Cholecystectomy, Other Patient History - Other: None LMP (females 10-50): LMP (Calendar): 05/02/16 - Family History mom Family History - Medical: , Migraines Family History - Cardiac/Respiratory: No pertinent hx dad Family History - Medical: Glaucoma Family History - Cardiac/Respiratory: Other - Social History Living Situations: home Abuse History: No History of abuse Psych History: Hx of Anxiety, Hx of Depression, Current tx/ever been on anti- depressants or anti-anxiety meds Smoking Status: Never smoker Have you smoked in the past 12 months: No Do you dip or chew tobacco: No Alcohol Use: none Drug Use: benzodiazepine - Immunizations Immunizations Up to Date: Yes Hx Pneumococcal Vaccination: No History of Influenza Vaccine: Yes Physical Exam - Physical Exam General Appearance: Present: wd/wn, alert, no apparent distress Head Exam: Present: normal inspection, no evidence of injury Eye Exam: Normal inspection: bilateral, PERRL: bilateral, EOMI: bilateral Ears, Nose, Throat: Present: normal ENT inspection, normal pharynx Neck: Present: normal inspection, nontender Respiratory: Present: no respiratory distress, normal breath sounds, no accessory muscle use, chest nontender, lungs clear Cardiovascular/Chest: Present: regular rate, rhythm, no murmur, normal peripheral pulses ED Progress - Vital Signs Patient's Vital Signs:: I have reviewed the patient's vital signs. Vital Signs: Vital Signs 10/08/16 18:52 Temperature 36.8 C Pulse Rate 84 Respiratory 17 Rate Blood Pressure 119/82 O2 Sat by Pulse 95 Oximetry - Progress/Reassessment Chief Complaint: Headache Departure Clinical Impression: Migraine Qualifiers: Migraine type: unspecified Status migrainosus presence: with status migrainosus Intractability: not intractable Qualified Code(s): G43.901 - Migraine, unspecified, not intractable, with status migrainosus - Departure Disposition: Home self-care Instructions: Migraine Headache, [id number] Prescriptions: HYDROcodone/ACETAMINOPHEN [[facility] 5-325] 1 - 2 tab PO Q6H PRN #6 tab PRN Reason: Pain
== END 2016-10-08 19:15 | disposition home or self-care (01) ==
LOC: ER 18:48
DX: G43.901 Migraine, unspecified, not intractable, with status migrainosus (principal); F41.8 Other specified anxiety disorders; Z33.1 Pregnant state, incidental; Z3A.23 23 weeks gestation of pregnancy

== ENCOUNTER 2016-10-31 17:26 | Emergency (ER) | payer MEDICARE, OTHER ==
--- NOTE | 2016-10-31 17:58 | ERNOTE ---
ER Female HPI Date of Service: 10/31/16 Stated Complaint: POSS MISCARRIAGE Time Seen by Provider: 10/31/16 17:40 Source: patient Exam Limitations: no limitations Immunizations: IMMUNIZATION HX Immunizations Up to Date Yes History of Influenza Vaccine Yes Hx Pneumococcal Vaccination No Allergies/Adverse Reactions: Allergies Cephalosporins Allergy (Verified 10/31/16 17:37) Penicillins Allergy (Verified 10/31/16 17:37) Home Medications: HOME MEDICATIONS Alprazolam [Xanax Xr] 0.5 mg PO TID 01/25/15 [Last Taken Unknown] Furosemide [Lasix] 40 mg PO BID 01/25/15 [Last Taken Unknown] Ibuprofen [Motrin] 800 mg PO TID PRN 10/08/16 [Last Taken Unknown] traZODone HCL [Trazodone HCl] 50 mg PO HS 10/31/16 [Last Taken Unknown] - History of Present Illness Narrative: Pt. comes in with c/o bleeding and abdominal cramping for a day. Pt. states that she had a D & C four weeks ago but found out she was again 2 weeks ago. Pt. denies any dizziness, weakness, SOB, CP, NVD, fever, recent illness, or injury. Review of Systems - Review of Systems Constitutional: Present: no symptoms reported. Absent: recent illness, fever, chills, weakness, fatigue, malaise EYE: Present: no symptoms reported ENT: Present: no symptoms reported Respiratory: Present: no symptoms reported. Absent: shortness of breath, cough , wheezing Cardiology: Present: no symptoms reported. Absent: chest pain, palpitations, edema Gastrointestinal/Abdominal: Present: abdominal pain - BLQ. Absent: nausea, vomiting, diarrhea Genitourinary: Present: no symptoms reported. Absent: frequency, decreased urinary output Musculoskeletal: Present: no symptoms reported. Absent: back pain, joint pain Skin: Present: no symptoms reported. Absent: rash, change in color Neurological: Present: no symptoms reported. Absent: headache, dizziness/light- headedness, numbness, tingling Endocrine: Present: no symptoms reported Hematologic/Lymphatic: Present: no symptoms reported All Other Systems: All systems neg except as marked - Patient's Past Medical History Patient History - Medical: Anxiety, Depression, Migraines, Obesity Patient History - Cardiac/Respiratory: No pertinent hx Patient History - Cancer: No Hx of Cancer Patient History - Surgical Procedures: Back Surgery, Cholecystectomy, D & C, Other Patient History - Other: None LMP (Calendar): 05/02/16 - Family History mom Family History - Medical: , Migraines Family History - Cardiac/Respiratory: No pertinent hx dad Family History - Medical: Glaucoma Family History - Cardiac/Respiratory: Other - Social History Living Situations: home Abuse History: No History of abuse Psych History: Hx of Anxiety, Hx of Depression, Current tx/ever been on anti- depressants or anti-anxiety meds Smoking Status: Never smoker Have you smoked in the past 12 months: No Do you dip or chew tobacco: No Alcohol Use: none Drug Use: benzodiazepine - Immunizations Immunizations Up to Date: Yes Hx Pneumococcal Vaccination: No History of Influenza Vaccine: Yes Physical Exam - Physical Exam General Appearance: Present: wd/wn, alert, no apparent distress Head Exam: Present: normal inspection, no evidence of injury Eye Exam: Normal inspection: bilateral, PERRL: bilateral, EOMI: bilateral Ears, Nose, Throat: Present: normal ENT inspection, normal pharynx Neck: Present: normal inspection, nontender. Absent: lymphadenopathy (R), lymphadenopathy (L) Respiratory: Present: no respiratory distress, normal breath sounds, no accessory muscle use, chest nontender, lungs clear Cardiovascular/Chest: Present: regular rate, rhythm, no murmur, normal peripheral pulses Gastrointestinal/Abdominal: Present: tenderness - BLQ Pelvic Exam: Absent: active bleeding, discharge, tender adnexa, tender uterus Back Exam: Present: normal inspection Extremity Exam: Present: normal inspection Neurological Exam: Present: alert, oriented, normal mood/affect, no motor/ sensory deficits Skin Exam: Present: normal color, warm/dry. Absent: pallor, skin rash ED Progress - Date and Time Seen: Date and Time: 10/31/16 20:[address] Cuba on cell phone and he did not respond after waiting for call back for 30 minutes so discussed case with Dr Paiz and as pt. is not having any active bleeding on pelvic exam and there is no blood in her urine pt. likely had retained products or clotting that pt. discharged into toilet and that pt. was not a second time. We will send pt to [facility] as outpatient for follow up. - Results and Orders Patient's Lab Results:: I have reviewed the patient's lab results. - Vital Signs Patient's Vital Signs:: I have reviewed the patient's vital signs. Vital Signs: Vital Signs 10/31/16 17:32 Temperature 36.8 C Pulse Rate 93 Respiratory 16 Rate Blood Pressure 120/70 O2 Sat by Pulse 100 Oximetry - Progress/Reassessment Chief Complaint: Genitourinary Problem Departure Clinical Impression: Status post dilatation and curettage - Departure Disposition: Home self-care Condition: Good Instructions: Miscarriage, [id number] Additional Instructions: Please follow up with [facility] in 2-3 days as they may want to do further testing. Referrals: Dash Godinez DO [Primary Care Provider] -
[2016-10-31 18:04] LABS: Hematocrit 33.8 % (37.0-47.0); Hemoglobin 11.1 gm/dL (12.5-16.0); Mean Cell Volume 76.3 fl (78-100); Mean Corpuscular Hemoglobin 25.1 pg (27-31); Mean Corpuscular Hgb Conc 32.8 g/dl (32-36); Mean Platelet Volume 8.8 fl (6.0-9.5); Neutrophil # 4.8 K/mm3 (1.3-6.0); Neutrophil % 64.5 % (42-75.0); Platelet Count 337 K/mm3 (150-450); Red Blood Count 4.43 M/mm3 (4.2-5.4); Red Cell Distribution Width 14.2 % (11.5-14.0); White Blood Count 7.5 K/mm3 (4.0-10.5)
[2016-10-31 18:17] LABS: Albumin * 2.7 gm/dl (3.4-5.0); Anion Gap 11.8 mmol/L (6.8-13.8); BUN/Creatinine Ratio 20.8 (9.0-21.6); Bilirubin, Total 0.7 mg/dL (0.0-1.1); Ca. Corrected For Albumin 9.3 mg/dL (8.4-10.2); Calcium * 8.6 mg/dL (7.9-10.9); Carbon Dioxide 26.1 mmol/L (24-32.6); Potassium 3.9 mmol/L (3.4-4.6); Total Protein 6.9 gm/dL (6.2-8.2)
[2016-10-31 18:32] LABS: Urine Bilirubin Negative (NEGATIVE); Urine Blood Negative /ul (NEGATIVE); Urine Ketone Negative (NEGATIVE); Urine Nitrite Negative (NEGATIVE); Urine Protein Negative (NEGATIVE); Urine Urobilinogen Normal (NORMAL); Urine pH 5.5 pH (5.0-7.0)
[2016-10-31 18:42] LABS: Urine Appearance Clear; Urine Color Yellow
[2016-10-31 18:43] LABS: Urine Bacteria 1+; Urine RBC None Seen /hpf (0-5); Urine WBC None Seen /hpf (0-5)
[2016-10-31 20:09] VITALS: BP 120/54
== END 2016-10-31 20:12 | disposition home or self-care (01) ==
LOC: ER 17:26
DX: N93.9 Abnormal uterine and vaginal bleeding, unspecified (principal); Z98.890 Other specified postprocedural states

== ENCOUNTER 2017-01-02 18:21 | Emergency (ER) | payer MEDICARE, OTHER ==
[2017-01-02] MEDS ORDERED: KETOROLAC TROMETHAMINE 60 MG/2 ML VIAL IM ONE ×2 (18:36→19:11)
--- NOTE | 2017-01-02 18:56 | ERNOTE ---
Lower Extremity HPI - Narrative Date of Service: 01/02/17 - General Lower Extremities Pain: knee: right Time Seen by Provider: 01/02/17 18:30 Source: patient Exam Limitations: no limitations - Immun/Allergies/Home Medications Immunizations: IMMUNIZATION HX Immunizations Up to Date Yes History of Influenza Vaccine Yes Hx Pneumococcal Vaccination No Allergies/Adverse Reactions: Allergies Allergy/AdvReac Type Severity Reaction Status Date / Time Cephalosporins Allergy Verified 01/02/17 18:38 Penicillins Allergy Verified 01/02/17 18:38 Home Medications: HOME MEDICATIONS Alprazolam [Xanax Xr] 0.5 mg PO TID 01/25/15 [Last Taken Unknown] Furosemide [Lasix] 40 mg PO BID 01/25/15 [Last Taken Unknown] traZODone HCL [Trazodone HCl] 50 mg PO HS 10/31/16 [Last Taken Unknown] Metoprolol Tartrate [Lopressor] 25 mg PO DAILY 01/02/17 [Last Taken Unknown] - History of Present Illness Narrative: 31-year-old female presents to the emergency room for right knee pain. She states that yesterday she was walking and felt her knee pop and she landed on her right knee related to pain. Today patient states she has been walking all day with pain to her right knee has been unable to see her primary care provider. Patient complains of tenderness to the back of her knee. Patient is morbidly obese swelling is very difficult to assess. Date (Duration): 01/02/17 Occurred: yesterday Location of Incident: home Method of Injury: Reports: fell, twisted Reason for Fall: Reports: unknown Loss of Consciousness: Reports: no loss of consciousness Modifying Factors - (Improves): Reports: immobilization Modifying Factors - (Worsens): Reports: movement Other Injuries: Reports: none Review of Systems - Review of Systems Constitutional: Present: no symptoms reported EYE: Present: no symptoms reported ENT: Present: no symptoms reported Respiratory: Present: no symptoms reported Cardiology: Present: no symptoms reported Gastrointestinal/Abdominal: Present: no symptoms reported Genitourinary: Present: no symptoms reported Musculoskeletal: Present: See HPI, joint pain Skin: Present: no symptoms reported Neurological: Present: no symptoms reported Endocrine: Present: no symptoms reported Hematologic/Lymphatic: Present: no symptoms reported Psych: Present: no symptoms reported All Other Systems: All systems neg except as marked - Patient's Past Medical History Patient History - Medical: Anxiety, Depression, Migraines, Obesity Patient History - Cardiac/Respiratory: No pertinent hx Patient History - Cancer: No Hx of Cancer Patient History - Surgical Procedures: Back Surgery, Cholecystectomy, D & C, Other Patient History - Other: None LMP (females 10-50): last week - Family History mom Family History - Medical: , Migraines Family History - Cardiac/Respiratory: No pertinent hx dad Family History - Medical: Glaucoma Family History - Cardiac/Respiratory: Other - Social History Living Situations: home Abuse History: No History of abuse Psych History: Hx of Anxiety, Hx of Depression, Current tx/ever been on anti- depressants or anti-anxiety meds - Immunizations Immunizations Up to Date: Yes Hx Pneumococcal Vaccination: No History of Influenza Vaccine: Yes Physical Exam - Physical Exam General Appearance: Present: wd/wn, alert, no apparent distress Head Exam: Present: normal inspection, no evidence of injury Eye Exam: Normal inspection: bilateral, PERRL: bilateral, EOMI: bilateral Ears, Nose, Throat: Present: normal ENT inspection, normal pharynx Neck: Present: normal inspection, nontender, supple, full range of motion Respiratory: Present: no respiratory distress, normal breath sounds, no accessory muscle use, chest nontender, lungs clear Cardiovascular/Chest: Present: regular rate, rhythm, no murmur, normal peripheral pulses Peripheral Pulses: N=norm/S=strong/W=weak/B=bound/A=absent: Dorsalis-pedis (R): Normal, Dorsalis-pedis (L): Normal Gastrointestinal/Abdominal: Present: normal bowel sounds, nontender, nondistended, soft, no organomegaly Back Exam: Present: normal inspection, normal range of motion, no CVA tenderness , no vertebral tenderness Extremity Exam: Present: normal inspection, normal except -, decreased range of motion, bony tenderness Neurological Exam: Present: alert, oriented, normal mood/affect, no motor/ sensory deficits Skin Exam: Present: normal color, warm/dry Lymphatic Exam: Present: no adenopathy ED Progress - Results and Orders Patient's Lab Results:: I have reviewed the patient's lab results. - Vital Signs Patient's Vital Signs:: I have reviewed the patient's vital signs. Vital Signs: Vital Signs 01/02/17 18:29 Temperature 36.4 C L Pulse Rate 80 Respiratory 16 Rate Blood Pressure 140/93 O2 Sat by Pulse 97 Oximetry - Progress/Reassessment Chief Complaint: Lower Extremity Pain/ Injury Departure Clinical Impression: Right knee sprain Qualifiers: Encounter type: initial encounter Involved ligament of knee: unspecified ligament Qualified Code(s): S83.91XA - Sprain of unspecified site of right knee , initial encounter - Departure Disposition: Home Follow Up Needed Condition: Stable Instructions: Knee Pain, [id number], Knee Sprain, [id number], RICE for Routine Care of Injuries, [id number] Additional Instructions: Continue any previous home medications as directed. she may take over-the- counter pain medications as needed. follow up with ortho in w days if needed. Referrals: Dash Godinez DO [Primary Care Provider] - Alec Rondon PAC [[facility]] -
[2017-01-02 23:13] VITALS: BP 130/77
== END 2017-01-02 20:25 | disposition home or self-care (01) ==
LOC: ER 18:21
DX: S83.91XA Sprain of unspecified site of right knee, initial encounter (principal); F41.8 Other specified anxiety disorders